=== PATIENT | male | born 2005 | race Caucasian/White ===

== ENCOUNTER 2025-10-08 12:16 | Emergency (ER) | payer OTHER ==
[~2025-10-08] VITALS: Ht 167.6 cm; Wt 52.3 kg
[2025-10-08 12:45] VITALS: TEMP 98.4
[2025-10-08 14:58] VITALS: BP 118/70; PULSE 60; RESP 16; O2SAT 100
== END 2025-10-08 15:00 ==
LOC: EMS 12:16
DX: S01.311A Laceration without foreign body of right ear, initial encounter (principal); S01.111A Laceration without foreign body of right eyelid and periocular area, initial encounter; Y00.XXXA Assault by blunt object, initial encounter; Y93.89 Activity, other specified; Y92.89 Other specified places as the place of occurrence of the external cause; Y99.8 Other external cause status
CPT/HCPCS: 12011; 99283